=== PATIENT | female | born 1955 | race Hispanic/Latino ===

== ENCOUNTER 2018-08-28 17:19 | Emergency (ER) | payer BC ==
--- NOTE | 2018-08-28 18:37 | RAD ---
Right knee 4 views: 08/28/2018 COMPARISON: None HISTORY: Injury FINDINGS: No fracture or dislocation. No significant knee joint effusion. Mild patellofemoral joint s pace narrowing and mild medial compartment narrowing. Mild medial tibial plateau and medial femoral condyle osteophyte formation. IMPRESSION: Mild degenerative change. No acute fracture or dislocation.
== END 2018-08-28 19:03 | disposition home or self-care (01) ==
LOC: SCSER 17:19
DX: S83.91XA Sprain of unspecified site of right knee, initial encounter (principal); I10 Essential (primary) hypertension; Z79.899 Other long term (current) drug therapy; X50.9XXA Other and unspecified overexertion or strenuous movements or postures, initial encounter

== ENCOUNTER 2019-03-27 17:42 | Emergency (ER) | payer BC ==
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
== END 2019-03-27 18:54 | disposition home or self-care (01) ==
LOC: SCSER 17:42
DX: S29.012A Strain of muscle and tendon of back wall of thorax, initial encounter (principal); S16.1XXA Strain of muscle, fascia and tendon at neck level, initial encounter; E03.9 Hypothyroidism, unspecified; I10 Essential (primary) hypertension; Z79.899 Other long term (current) drug therapy; V49.9XXA Car occupant (driver) (passenger) injured in unspecified traffic accident, initial encounter
CPT/HCPCS: 72125

== ENCOUNTER 2023-03-15 10:29 | Outpatient (CLI) | payer OTHER, BC | END 2023-03-15 10:30 | disposition home or self-care (01) | LOC: BICMRI 10:29 | PROVIDERS: ATTEND Student in an Organized Health Care Education/Training Program | DX: M23.92 Unspecified internal derangement of left knee (principal); S83.242A Other tear of medial meniscus, current injury, left knee, initial encounter; S82.202A Unspecified fracture of shaft of left tibia, initial encounter for closed fracture ==